=== PATIENT | female | born 1945 | race Caucasian/White ===

== ENCOUNTER 2016-07-26 09:21 | Outpatient (RCR) | payer MEDICARE ==
[2016-07-26 09:31] LABS: MEAN CORPUSCULAR HGB CONC 34.2 g/dL (31.0-37.0); MEAN PLATELET VOLUME 9.6 FL (6.0-9.5); PLATELET COUNT 161 10^3uL (150-450); WHITE BLOOD COUNT 1.62 10^3uL (4.0-11.0)
[2016-07-26 09:37] LABS: BAND NEUTROPHILS % 2 % (0-6); EOSINOPHILS % 6 % (0-4); MEAN CORPUSCULAR VOLUME 99 FL (80-100); MONOCYTES % 1 % (3-11); RBC MORPH NORMAL (NORMAL); SEGMENTED NEUTROPHILS % 77 % (51-67); TOTAL CELLS COUNTED 100
[2016-07-26 09:38] LABS: MEAN CORPUSCULAR HEMOGLOBIN 33.9 PG (26.0-34.0)
[2016-07-26 09:48] LABS: ALBUMIN 3.7 g/dL (3.4-5.0); ANION GAP 12.1 MEQ/L (3-15); MAGNESIUM* 2.2 mg/dL (1.6-2.3); PHOSPHORUS 3.7 mg/dL (2.4-4.9); TOTAL PROTEIN 6.9 g/dL (6.4-8.5)
[2016-08-09 10:47] LABS: BASOPHILS % (AUTO) 2 % (0-2); EOSINOPHILS # (AUTO) 0.1 10^3uL; EOSINOPHILS % (AUTO) 3 % (0-4); LYMPHOCYTES # (AUTO) 0.3 X10^3; MEAN CORPUSCULAR HGB CONC 34.2 g/dL (31.0-37.0); MEAN PLATELET VOLUME 10.6 FL (6.0-9.5); MONOCYTES # (AUTO) 0.3 X10^3; MONOCYTES % (AUTO) 10 % (3-11); NEUTROPHILS # (AUTO) 2.1 X10^3; NEUTROPHILS % (AUTO) 73 % (51-67); PLATELET COUNT 111 10^3uL (150-450); WHITE BLOOD COUNT 2.89 10^3uL (4.0-11.0)
[2016-08-09 11:03] LABS: MEAN CORPUSCULAR HEMOGLOBIN 33.9 PG (26.0-34.0); MEAN CORPUSCULAR VOLUME 99 FL (80-100)
[2016-08-16 11:47] LABS: MEAN CORPUSCULAR HGB CONC 33.9 g/dL (31.0-37.0); MEAN PLATELET VOLUME 9.7 FL (6.0-9.5); PLATELET COUNT 158 10^3uL (150-450)
[2016-08-16 12:24] LABS: MEAN CORPUSCULAR HEMOGLOBIN 33.3 PG (26.0-34.0); MEAN CORPUSCULAR VOLUME 98 FL (80-100); WHITE BLOOD COUNT 1.38 10^3uL (4.0-11.0)
[2016-08-16 13:32] LABS: BAND NEUTROPHILS % 0 % (0-6); EOSINOPHILS % 1 % (0-4); LYMPHOCYTES # 0.3 #; MONOCYTES # 0.1 #; MONOCYTES % 8 % (3-11); RBC MORPH NORMAL (NORMAL); SEGMENTED NEUTROPHILS % 69 % (51-67); TOTAL CELLS COUNTED 100
[2016-08-23 10:25] LABS: MEAN CORPUSCULAR HGB CONC 33.6 g/dL (31.0-37.0); MEAN PLATELET VOLUME 10.5 FL (6.0-9.5); PLATELET COUNT 274 10^3uL (150-450)
[2016-08-23 10:28] LABS: MEAN CORPUSCULAR VOLUME 101 FL (80-100); WHITE BLOOD COUNT 37.15 10^3uL (4.0-11.0)
[2016-08-23 10:32] LABS: EOSINOPHILS % 0 % (0-4); LYMPHOCYTES # 2.2 #
[2016-08-23 10:33] LABS: BAND NEUTROPHILS % 12 % (0-6); MONOCYTES # 4.4 #; MONOCYTES % 12 % (3-11); RBC MORPH NORMAL (NORMAL); SEGMENTED NEUTROPHILS % 63 % (51-67); TOTAL CELLS COUNTED 100
[2016-08-23 11:04] LABS: ALBUMIN 3.5 g/dL (3.4-5.0); ANION GAP 13.7 MEQ/L (3-15); CALCULATED IONIZED CALCIUM 4.8 mg/dL (3.8-4.6); MAGNESIUM* 1.7 mg/dL (1.6-2.3); PHOSPHORUS 2.9 mg/dL (2.4-4.9); TOTAL PROTEIN 5.4 g/dL (6.4-8.5)
[2016-09-02 08:39] LABS: BASOPHILS % (AUTO) 1 % (0-2); EOSINOPHILS % (AUTO) 0 % (0-4); LYMPHOCYTES # (AUTO) 0.7 X10^3; MEAN CORPUSCULAR HGB CONC 33.5 g/dL (31.0-37.0); MEAN PLATELET VOLUME 10.9 FL (6.0-9.5); MONOCYTES # (AUTO) 0.5 X10^3; MONOCYTES % (AUTO) 9 % (3-11); NEUTROPHILS # (AUTO) 4.1 X10^3; NEUTROPHILS % (AUTO) 74 % (51-67); PLATELET COUNT 156 10^3uL (150-450); WHITE BLOOD COUNT 5.53 10^3uL (4.0-11.0)
[2016-09-02 08:43] LABS: MEAN CORPUSCULAR HEMOGLOBIN 34.4 PG (26.0-34.0); MEAN CORPUSCULAR VOLUME 103 FL (80-100)
[2016-09-08 10:01] LABS: BASOPHILS % (AUTO) 1 % (0-2); EOSINOPHILS % (AUTO) 1 % (0-4); LYMPHOCYTES # (AUTO) 0.4 X10^3; MEAN CORPUSCULAR HGB CONC 34.4 g/dL (31.0-37.0); MEAN PLATELET VOLUME 10.8 FL (6.0-9.5); MONOCYTES # (AUTO) 0.1 X10^3; MONOCYTES % (AUTO) 2 % (3-11); NEUTROPHILS # (AUTO) 2.3 X10^3; NEUTROPHILS % (AUTO) 79 % (51-67); PLATELET COUNT 148 10^3uL (150-450); WHITE BLOOD COUNT 2.89 10^3uL (4.0-11.0)
[2016-09-08 10:04] LABS: MEAN CORPUSCULAR HEMOGLOBIN 34.5 PG (26.0-34.0); MEAN CORPUSCULAR VOLUME 100 FL (80-100)
[2016-09-13 13:00] LABS: MEAN CORPUSCULAR HGB CONC 33.6 g/dL (31.0-37.0); MEAN PLATELET VOLUME 11.1 FL (6.0-9.5); PLATELET COUNT 105 10^3uL (150-450); WHITE BLOOD COUNT 5.87 10^3uL (4.0-11.0)
[2016-09-13 13:25] LABS: MEAN CORPUSCULAR HEMOGLOBIN 33.8 PG (26.0-34.0); MEAN CORPUSCULAR VOLUME 101 FL (80-100)
[2016-09-13 13:26] LABS: BAND NEUTROPHILS % 11 % (0-6); EOSINOPHILS % 2 % (0-4); LYMPHOCYTES # 0.4 #; MONOCYTES # 0.3 #; MONOCYTES % 5 % (3-11); SEGMENTED NEUTROPHILS % 70 % (51-67); TOTAL CELLS COUNTED 100
[2016-09-13 13:27] LABS: ANISOCYTOSIS SLIGHT; RBC MORPH SEE REFERENCE (NORMAL)
[2016-09-14 18:13] LABS: IRON 84 ug/dL (50-170); UNBOUND IRON CONTENT 156 ug/dl (126-382)
[2016-09-20 10:49] LABS: MEAN CORPUSCULAR HGB CONC 33.3 g/dL (31.0-37.0); MEAN PLATELET VOLUME 10.7 FL (6.0-9.5); PLATELET COUNT 132 10^3uL (150-450); WHITE BLOOD COUNT 21.86 10^3uL (4.0-11.0)
[2016-09-20 10:52] LABS: MEAN CORPUSCULAR HEMOGLOBIN 33.8 PG (26.0-34.0); MEAN CORPUSCULAR VOLUME 101 FL (80-100)
[2016-09-20 11:00] LABS: BAND NEUTROPHILS % 3 % (0-6); EOSINOPHILS % 0 % (0-4); LYMPHOCYTES # 2.6 #; MONOCYTES # 0.2 #; MONOCYTES % 1 % (3-11); NUCLEATED RED BLOOD CELLS 1; RBC MORPH NORMAL (NORMAL); SEGMENTED NEUTROPHILS % 84 % (51-67); TOTAL CELLS COUNTED 100
[2016-09-20 11:26] LABS: ALBUMIN 3.9 g/dL (3.4-5.0); ANION GAP 15.9 MEQ/L (3-15); CALCULATED IONIZED CALCIUM 4.6 mg/dL (3.8-4.6); MAGNESIUM* 2.1 mg/dL (1.6-2.3); PHOSPHORUS 5.1 mg/dL (2.4-4.9); TOTAL PROTEIN 6.2 g/dL (6.4-8.5)
[2016-09-27 08:54] LABS: BASOPHILS % (AUTO) 1 % (0-2); EOSINOPHILS % (AUTO) 0 % (0-4); LYMPHOCYTES # (AUTO) 0.5 X10^3; MEAN CORPUSCULAR HGB CONC 33.3 g/dL (31.0-37.0); MEAN PLATELET VOLUME 10.8 FL (6.0-9.5); MONOCYTES # (AUTO) 0.4 X10^3; MONOCYTES % (AUTO) 9 % (3-11); NEUTROPHILS # (AUTO) 3.7 X10^3; NEUTROPHILS % (AUTO) 79 % (51-67); PLATELET COUNT 109 10^3uL (150-450); WHITE BLOOD COUNT 4.67 10^3uL (4.0-11.0)
[2016-09-27 08:57] LABS: MEAN CORPUSCULAR HEMOGLOBIN 34.5 PG (26.0-34.0); MEAN CORPUSCULAR VOLUME 103 FL (80-100)
[2016-10-04 09:27] LABS: BASOPHILS % (AUTO) 1 % (0-2); EOSINOPHILS % (AUTO) 1 % (0-4); LYMPHOCYTES # (AUTO) 0.3 X10^3; MEAN CORPUSCULAR HGB CONC 33.9 g/dL (31.0-37.0); MEAN PLATELET VOLUME 10.4 FL (6.0-9.5); MONOCYTES # (AUTO) 0.1 X10^3; MONOCYTES % (AUTO) 3 % (3-11); NEUTROPHILS # (AUTO) 2.5 X10^3; NEUTROPHILS % (AUTO) 83 % (51-67); PLATELET COUNT 90 10^3uL (150-450); WHITE BLOOD COUNT 2.97 10^3uL (4.0-11.0)
[2016-10-04 09:34] LABS: MEAN CORPUSCULAR HEMOGLOBIN 34.5 PG (26.0-34.0); MEAN CORPUSCULAR VOLUME 102 FL (80-100)
[2016-10-11 11:59] LABS: MEAN CORPUSCULAR HGB CONC 32.9 g/dL (31.0-37.0); MEAN PLATELET VOLUME 10.4 FL (6.0-9.5); PLATELET COUNT 158 10^3uL (150-450)
[2016-10-11 12:07] LABS: MEAN CORPUSCULAR HEMOGLOBIN 33.8 PG (26.0-34.0); MEAN CORPUSCULAR VOLUME 103 FL (80-100)
[2016-10-11 12:13] LABS: ALBUMIN 3.6 g/dL (3.4-5.0); ANION GAP 12.7 MEQ/L (3-15); CALCULATED IONIZED CALCIUM 4.7 mg/dL (3.8-4.6); MAGNESIUM* 1.7 mg/dL (1.6-2.3); PHOSPHORUS 2.5 mg/dL (2.4-4.9); TOTAL PROTEIN 5.9 g/dL (6.4-8.5)
[2016-10-11 12:14] LABS: ANISOCYTOSIS SLIGHT; BAND NEUTROPHILS % 38 % (0-6); EOSINOPHILS % 0 % (0-4); LYMPHOCYTES # 1.7 #; MONOCYTES % 6 % (3-11); RBC MORPH SEE REFERENCE (NORMAL); SEGMENTED NEUTROPHILS % 44 % (51-67); TOTAL CELLS COUNTED 100
[2016-10-18 13:55] LABS: MEAN PLATELET VOLUME 11.1 FL (6.0-9.5); PLATELET COUNT 120 10^3uL (150-450); WHITE BLOOD COUNT 10.79 10^3uL (4.0-11.0)
[2016-10-18 14:01] LABS: BAND NEUTROPHILS % 3 % (0-6); EOSINOPHILS % 0 % (0-4); LYMPHOCYTES # 0.5 #; MEAN CORPUSCULAR HEMOGLOBIN 34.1 PG (26.0-34.0); MEAN CORPUSCULAR VOLUME 103 FL (80-100); MONOCYTES # 0.2 #; MONOCYTES % 2 % (3-11); RBC MORPH SEE REFERENCE (NORMAL); SEGMENTED NEUTROPHILS % 90 % (51-67); TOTAL CELLS COUNTED 100
== END 2016-10-24 | disposition home or self-care (01) ==
LOC: LAB 09:21
PROVIDERS: ATTEND Internal Medicine Hematology & Oncology
DX: C50.412 Malignant neoplasm of upper-outer quadrant of left female breast (principal); Z17.0 Estrogen receptor positive status [ER+]
CPT/HCPCS: 36415; 80053; 82728; 83540; 83550; 83615; 83735; 84100; 85007; 85025; 85027; 86300

== ENCOUNTER 2016-10-25 10:36 | Outpatient (RCR) | payer MEDICARE ==
[2016-10-25 10:09] LABS: MEAN CORPUSCULAR HGB CONC 33.5 g/dL (31.0-37.0); MEAN PLATELET VOLUME 10.6 FL (6.0-9.5); PLATELET COUNT 93 10^3uL (150-450); WHITE BLOOD COUNT 3.21 10^3uL (4.0-11.0)
[2016-10-25 10:16] LABS: MEAN CORPUSCULAR HEMOGLOBIN 34.5 PG (26.0-34.0); MEAN CORPUSCULAR VOLUME 103 FL (80-100)
[2016-10-25 10:25] LABS: BAND NEUTROPHILS % 2 % (0-6); EOSINOPHILS % 0 % (0-4); LYMPHOCYTES # 0.4 #; MONOCYTES # 0.1 #; MONOCYTES % 2 % (3-11); RBC MORPH SEE REFERENCE (NORMAL); SEGMENTED NEUTROPHILS % 85 % (51-67); TOTAL CELLS COUNTED 100
[~2016-10-25 10:36] MED LIST: FENT1PAT9 TD; HYDR-3702 PO; LETR2.5T5 PO; LOPE2TAB34 PO; LSNP20T PO; MIRT15TA98 PO; ONDA-50 PO; [UNRECOGNIZED DRUG - CODE] MM
[2016-11-01 10:45] LABS: MEAN CORPUSCULAR HGB CONC 33.1 g/dL (31.0-37.0); MEAN PLATELET VOLUME 11.1 FL (6.0-9.5); PLATELET COUNT 107 10^3uL (150-450); WHITE BLOOD COUNT 3.64 10^3uL (4.0-11.0)
[2016-11-01 10:52] LABS: MEAN CORPUSCULAR HEMOGLOBIN 33.8 PG (26.0-34.0); MEAN CORPUSCULAR VOLUME 102 FL (80-100)
[2016-11-01 11:12] LABS: ALBUMIN 3.3 g/dL (3.4-5.0); ANION GAP 14.5 MEQ/L (3-15); CALCULATED IONIZED CALCIUM 5.1 mg/dL (3.8-4.6); MAGNESIUM* 1.8 mg/dL (1.6-2.3); TOTAL PROTEIN 5.6 g/dL (6.4-8.5)
[2016-11-01 12:47] LABS: ANISOCYTOSIS MODERATE; BAND NEUTROPHILS % 20 % (0-6); EOSINOPHILS % 0 % (0-4); HYPOCHROMASIA SLIGHT; LYMPHOCYTES # 0.3 #; MONOCYTES # 0.2 #; MONOCYTES % 7 % (3-11); POLYCHROMASIA SLIGHT; RBC MORPH SEE REFERENCE (NORMAL); SEGMENTED NEUTROPHILS % 65 % (51-67); TEAR DROP CELLS MODERATE; TOTAL CELLS COUNTED 100
[2016-11-25 08:15] LABS: CLARITY,URINE Turbid; COLOR,URINE Amber; GLUCOSE, URINE (UA) Negative (Negative); LEUKOCYTE ESTERASE ,URINE Trace (Negative)
[2016-11-25 08:38] LABS: BILIRUBIN,URINE 3+ (Negative)
[2016-11-25 11:46] LABS: URINE CENTRIFUGED VOLUME <10mL Unspun
== END 2017-01-23 | disposition home or self-care (01) ==
LOC: LAB 10:36
PROVIDERS: ATTEND Internal Medicine Hematology & Oncology
DX: C50.412 Malignant neoplasm of upper-outer quadrant of left female breast (principal); Z17.0 Estrogen receptor positive status [ER+]; R82.99 Other abnormal findings in urine
CPT/HCPCS: 36415; 80053; 81003; 81015; 83615; 83735; 84100; 85007; 85025; 85027; 86300; 87088

== ENCOUNTER → 2016-10-26 | Outpatient (CLI) | payer MEDICARE | LOC: RAD 08:03 | PROVIDERS: ATTEND Internal Medicine Hematology & Oncology | DX: C50.412 Malignant neoplasm of upper-outer quadrant of left female breast (principal); Z17.0 Estrogen receptor positive status [ER+] | CPT/HCPCS: 71260; 74178; Q9967 ==

== ENCOUNTER → 2016-11-25 | Outpatient (REF) | payer MEDICARE ==
[2016-11-25 11:01] LABS: BASOPHILS % (AUTO) 0 % (0-2); EOSINOPHILS # (AUTO) 0.2 10^3uL; EOSINOPHILS % (AUTO) 1 % (0-4); LYMPHOCYTES # (AUTO) 0.6 X10^3; MEAN CORPUSCULAR HGB CONC 34.6 g/dL (31.0-37.0); MEAN PLATELET VOLUME 11.1 FL (6.0-9.5); MONOCYTES # (AUTO) 1.2 X10^3; MONOCYTES % (AUTO) 11 % (3-11); NEUTROPHILS # (AUTO) 9.6 X10^3; NEUTROPHILS % (AUTO) 83 % (51-67); PLATELET COUNT 111 10^3uL (150-450); WHITE BLOOD COUNT 11.66 10^3uL (4.0-11.0)
[2016-11-25 11:02] LABS: MEAN CORPUSCULAR HEMOGLOBIN 34.2 PG (26.0-34.0); MEAN CORPUSCULAR VOLUME 99 FL (80-100)
[2016-11-25 11:09] LABS: ALBUMIN 2.3 g/dL (3.4-5.0); ANION GAP 17.7 MEQ/L (3-15); CALCULATED IONIZED CALCIUM 4.5 mg/dL (3.8-4.6); TOTAL PROTEIN 4.7 g/dL (6.4-8.5)
== END ==
LOC: LAB 10:55
PROVIDERS: ATTEND Internal Medicine Hematology & Oncology
DX: R30.0 Dysuria (principal); C50.412 Malignant neoplasm of upper-outer quadrant of left female breast
CPT/HCPCS: 80053; 85025